=== PATIENT | male | born 1950 | race Caucasian/White ===

== ENCOUNTER 2017-05-04 17:02 | Inpatient (IN) | payer MEDICARE, OTHER ==
[2017-05-04] MEDS ORDERED: EPINEPHrine HCL (1:10,000) 1 MG/10 ML SYRINGE ONE ×2 (17:22→17:23)
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
[2017-05-04] MEDS ORDERED: TERBUTALINE INJ 1 MG/ML AMP SQ PRN ×4 (17:45→20:00)
[2017-05-04] MEDS ORDERED: DOPamine INJ PREMIX 500 ML IV PRN (17:45)
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
[2017-05-04] MEDS ORDERED: NOREPINEPHRINE 4 MG/4 ML AMP ONE ×2 (18:05→19:54)
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
[2017-05-04 18:50] VITALS: O2SAT 89
[2017-05-04] MEDS: NOREPINEPHRINE INJ 4 MG in SODIUM CHLOR 0.9% 250 ML INJ 246 ML IV PRN ×2 (19:00→23:01)
[2017-05-04] MEDS ORDERED: PHENYLEPHRINE HCL 10 MG/ML VIAL ONE (19:14)
[2017-05-04] MEDS: PHENYLEPHRINE INJ 40 MG in DEXTROSE 5% IN WATE 500 ML INJ 496 ML IV PRN ×4 (19:30→22:39)
[2017-05-04 19:34] VITALS: O2SAT 94
[2017-05-04] MEDS ORDERED: PHENYLEPHRINE 40 MG in D5W 500 ML IV PRN (19:45)
[2017-05-04 19:54] LABS: BLOOD GAS BASE EXCESS -1.9 mmol/L (-2-2); BLOOD GAS HCO3 23 mmol/L (22-26); BLOOD GAS O2 HGB SATURATION 94 % (90-100); BLOOD GAS OXYGEN CONTENT 17.7 Vol % (12.0-20.0); BLOOD GAS PCO2 43 mmHg (38-42); BLOOD GAS PO2 89 mmHg (61-120); BLOOD GAS TOTAL HGB 13.4 G/DL (12.0-16.0); CRITICAL VALUE NO; DRAW SITE RT RADIAL; FIO2 100 %; NUMBER OF ARTERIAL PUNCTURES 1; OXYGEN DEVICE VENTILATOR; STAT YES; TEMP CORR TO 98.6; ULNAR PULSE PRESENT; VENT SETTINGS PRVC/AC
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
[2017-05-04 20:00] VITALS: BP 125/75; PULSE 127; PULSE 128; RESP 24; O2SAT 92
[2017-05-04] MEDS ORDERED: RESP: ALBUTEROL 2.5 MG/IPRATROPIUM 0.5 MG NEB (PRN) INH (20:00)
[2017-05-04] MEDS ORDERED: SODIUM CHLORIDE 0.9% FLUSH 10 ML FLUSH IV FLUSH PRN (20:00)
[2017-05-04] MEDS ORDERED: SODIUM CHLOR 0.9% 1000 ML INJ 1,000 ML IV SCH (20:00)
[2017-05-04] MEDS ORDERED: CHLORHEXIDINE GLUCONATE 2 % 1 PACK (2 CLOTHS) TOP PRN (20:00)
[2017-05-04] MEDS ORDERED: CHLORHEXIDINE 0.12% (ORAL KIT) 15 ML CUP MT SCH (20:00)
[2017-05-04] MEDS ORDERED: MISCELLANEOUS NURSING INFORMATION XX SCH (20:00)
[2017-05-04] MEDS ORDERED: ACETAMINOPHEN 325 MG TAB PO PRN (20:00)
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
[2017-05-04 20:20] LABS: CALCIUM-PROTEIN CORRECTED 8.1 MG/DL (8.5-10.1); POTASSIUM 4.2 MEQ/L (3.5-5.1); TOTAL BILIRUBIN ADULT 0.7 MG/DL (0.2-1.0)
[2017-05-04 20:25] LABS: BASOPHIL % 0.2 % (0.0-2.0); EOSINOPHIL # 0.1 TH/MM3 (0-0.4); EOSINOPHIL % 0.4 % (0.0-4.0); HEMATOCRIT 39.5 % (39.0-51.0); HEMO FLAGS DIFF FINAL; LYMPH % 5.1 % (9.0-44.0); LYMPHOCYTE # 0.7 TH/MM3 (1.0-4.8); MEAN CELL VOLUME 93.8 FL (80.0-100.0); MEAN CORPUSCULAR HEMOGLOBIN 31.3 PG (27.0-34.0); MEAN CORPUSCULAR HGB CONC 33.4 % (32.0-36.0); NEUT % 92.3 % (16.0-70.0); PLATELET COUNT 132 TH/MM3 (150-450); RED BLOOD COUNT 4.21 MIL/MM3 (4.50-5.90); RED CELL DISTRIBUTION WIDTH 14.5 % (11.6-17.2); WHITE BLOOD COUNT 14.1 TH/MM3 (4.0-11.0)
--- NOTE | 2017-05-04 20:39 | RADRPT ---
EXAM DATE/TIME: 05/04/2017 20:09 [facility] COMPARISON: CHEST SINGLE AP, May 04, 2017, 17:22. INDICATIONS : Pneumothorax. MEDICAL HISTORY : Non-responsive. SURGICAL HISTORY : Non-responsive. ENCOUNTER: Initial ACUITY: 1 day PAIN SCORE: Non-responsive. LOCATION: Bilateral chest FINDINGS: Portable expiratory view of the chest demonstrates a normal-sized cardiac silhouette. Endotracheal tu be and nasogastric tube are present and in appropriate location. There is abnormal lucency over the r ight hemithorax representing a pneumothorax which appears loculated between the upper and lower lungs . There are no findings to indicate tension. There is stable blunting of the left costophrenic sulcus . No left pneumothorax is present. There are multiple displaced left rib fractures. No right rib frac tures are identified. The stomach is now decompressed. CONCLUSION: 1. There is a new right pneumothorax without signs of tension. 2. Nasogastric tube is tip is within the stomach and stomach is now decompressed. 3. Small left pleural effusion. 4. Multiple displaced left rib fractures are now identified. The findings concerning the pneumothorax were telephoned to [facility] in the [facility]. Yaniv Marrero MD on May 04, 2017 at 20:34 Board Certified Radiologist. This report was verified electronically.
[2017-05-04 20:45] LABS: APTT (PATIENT) 70.4 SEC (24.3-30.1); INTERNATIONAL NORMALIZED RATIO 3.1 RATIO; PROTHROMBIN TIME - PATIENT 36.2 SEC (9.8-11.6)
[2017-05-04] MEDS ORDERED: FAMOTIDINE 20 MG/2 ML VIAL IV PUSH SCH (21:00)
[2017-05-04] MEDS ORDERED: SODIUM CHLORIDE 0.9% FLUSH 10 ML FLUSH IV FLUSH SCH (21:00)
--- NOTE | 2017-05-04 21:01 | RADRPT ---
EXAM DATE/TIME: 05/04/2017 20:39 [facility] COMPARISON: CHEST SINGLE AP, May 04, 2017, 20:09. INDICATIONS : Chest tube placement. MEDICAL HISTORY : non-responsive SURGICAL HISTORY : non-responsive ENCOUNTER: Initial ACUITY: 1 day PAIN SCORE: Non-responsive. LOCATION: Right chest FINDINGS: Portable AP view of the chest demonstrates a normal-sized cardiac silhouette. Endotracheal tube and n asogastric tube remain present. A pigtail pleural catheter overlies the right upper quadrant. There i s a persistent right pneumothorax although likely decreased in size. There are linear opacities in th e right upper and right lower lung zone. Small left pleural effusion remains present along with displ aced left rib fractures.. CONCLUSION: 1. There is a pleural catheter overlying the right upper quadrant. Based on the single image I cannot determine if it is located in the right upper quadrant or in the far inferior right hemithorax. Sugg est correlating with the procedure and clinical findings. A right pneumothorax remains present but li darnell decreased in size from the prior study. 2. Stable small left pleural effusion with multiple left rib fractures. Yaniv Marrero MD on May 04, 2017 at 20:57 Board Certified Radiologist. This report was verified electronically.
--- NOTE | 2017-05-04 21:39 | PD.PROCEDR ---
Central Line Procedure REASON FOR PROCEDURE Central venous access PROCEDURE PERFORMED Central line placement: Left femoral vein CONSENT Informed consent for procedure was not obtained as this was an emergent procedure ANESTHESIA Local injection of 1% Lidocaine DESCRIPTION OF THE PROCEDURE The area was exposed and cleansed with ChloraPrep, times two. Large sterile drape was used to cover the patient, with the site exposed, under sterile conditions including cap, face mask, sterile gown, and sterile gloves. On single attempt, the introducer needle was inserted with negative pressure in syringe and venous flash was obtained. The guide wire was then advanced without any restriction and the needle was removed. The dilator was used without any complications. Using Seldinger technique the antimicrobial coated triple lumen catheter was advanced over the guide wire to a depth of 19 centimeters. The guide wire was removed. All ports were aspirated with dark venous blood return and flushed easily with sterile saline. All ports were capped. Antibiotic disc was placed around central line at puncture site. The central line was secured to the skin with two interrupted 2.0 silk sutures. The area was bandaged with sterile see-through central line bandage. Off note there was a failed attempt at right subclavian vein cannulation prior to femoral central line placement. COMPLICATIONS: No apparent complications ESTIMATED BLOOD LOSS: Less than 1 cc. Masoud Holloway MD May 04, 2017 21:39
--- NOTE | 2017-05-04 21:42 | PD.PROCEDR ---
Procedure Note Procedure Procedure: Right sided Pigtail catheter placement site: Right pleural cavity fourth intercostal space in anterior axillary line Preop diagnosis: right pneumothorax Postop diagnosis: Same Informed consent: Obtained from family and documented on chart. Anesthesia used: 1% lidocaine for local infiltration anesthesia Procedure: After sterile prepping and draping using 1% lidocaine for local infiltration anesthesia, introducer Angiocath was used to enter Right pleural cavity between fourth intercostal space in anterior axillary line. Pleural cavity was entered as evidenced by return of air bubbles. A guidewire was passed through Angiocath without any resistance following which Angiocath was removed. 8 Ethiopian pigtail catheter was advanced over the guidewire into the right pleural cavity following which guidewire and stiffener were removed. Pigtail catheter was connected to Pleur-evac VAC with a connector. Initial air leak was noted. Pigtail catheter was sutured in place as well as secured with stayfix. Postprocedure chest x-ray was ordered and was pending at the time of this dictation. It will be reviewed when available. Patient tolerated procedure well with no immediate complications noted. O2 sats improved from the low 80s to 98% after placement of pigtail catheter. Masoud Holloway MD May 04, 2017 21:42
[2017-05-04 22:00] VITALS: PULSE 126
[2017-05-04] MEDS ORDERED: RESP: ALBUTEROL 2.5 MG/IPRATROPIUM 0.5 MG NEB (SCH) NEB (22:00)
[2017-05-04] MEDS ORDERED: SODIUM CHLOR 0.9% 1000 ML INJ 1,000 ML IV ONE (22:00)
[2017-05-04] MEDS: EPINEPHrine (1:1000) INJ 2 MG in DEXTROSE 5% IN WATER INJ 250 ML IV PRN ×2 (22:20)
[2017-05-04 23:30] VITALS: O2SAT 98
[2017-05-05] VITALS: BP 71/55; PULSE 121; RESP 24; TEMP 95; O2SAT 99
[2017-05-05] MEDS ORDERED: SODIUM CHLOR 0.9% 1000 ML INJ 1,000 ML IV ONE (00:15)
[2017-05-05] MEDS ORDERED: NOREPINEPHRINE INJ 4 MG in SODIUM CHLOR 0.9% 250 ML INJ 246 ML IV PRN (00:15)
[2017-05-05] MEDS: NOREPINEPHRINE INJ 4 MG in SODIUM CHLOR 0.9% 250 ML INJ 246 ML IV PRN ×2 (00:36→01:00)
[2017-05-05] MEDS: PHENYLEPHRINE INJ 40 MG in DEXTROSE 5% IN WATE 500 ML INJ 496 ML IV PRN ×2 (00:58)
[2017-05-05 01:16] VITALS: BP 62/42
[2017-05-05] MEDS: EPINEPHrine (1:1000) INJ 2 MG in DEXTROSE 5% IN WATER INJ 250 ML IV PRN ×2 (01:16)
[2017-05-05 01:22] VITALS: O2SAT 96
[2017-05-05 02:00] VITALS: PULSE 0
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
[2017-05-05] MEDS ORDERED: CHLORHEXIDINE GLUCONATE 2 % 1 PACK (2 CLOTHS) TOP SCH (04:00)
== END 2017-05-05 04:20 | disposition expired | DRG 82 ==
LOC: PHED 17:02 → PHEDA 17:33 → N03B 18:32
PROVIDERS: ADMIT Neurological Surgery; ATTEND Neurological Surgery
PROC: 0BH17EZ Insertion of Endotracheal Airway into Trachea, Via Natural or Artificial Opening (ICD-10-PCS; principal; 2017-05-04)
PROC: 5A1935Z Respiratory Ventilation, Less than 24 Consecutive Hours (ICD-10-PCS; 2017-05-04)
PROC: 0W9930Z Drainage of Right Pleural Cavity with Drainage Device, Percutaneous Approach (ICD-10-PCS; 2017-05-04)
PROC: 06HN33Z Insertion of Infusion Device into Left Femoral Vein, Percutaneous Approach (ICD-10-PCS; 2017-05-04)
DX: S06.9X9A Unspecified intracranial injury with loss of consciousness of unspecified duration, initial encounter (principal); J96.00 Acute respiratory failure, unspecified whether with hypoxia or hypercapnia; R57.9 Shock, unspecified; J93.9 Pneumothorax, unspecified; S01.80XA Unspecified open wound of other part of head, initial encounter; R40.2432 Glasgow coma scale score 3-8, at arrival to emergency department; Z66 Do not resuscitate
CPT/HCPCS: 31500; 36600; 36620; 43753; 70450; 71010; 80053; 82805; 85025; 85610; 85730; 92950; 94002; 94003; 94664; J0171; J2370; J7030; J7050; J7060; L0172